=== PATIENT | male | born 1940 | race Caucasian/White ===

== ENCOUNTER 2017-09-23 12:16 | Emergency (ER) | payer OTHER ==
[~2017-09-23] VITALS: Ht 170.2 cm; Wt 79.5 kg
[2017-09-23 15:04] VITALS: BP 133/91
[2017-09-23] MEDS ORDERED: PERCOCET 5/31 TABLET PO (15:14)
[2017-09-23] MEDS ORDERED: KEFLEX500 MG PO (15:14)
== END 2017-09-23 15:40 | disposition home or self-care (01) ==
LOC: EME 12:16
DX: S62.633B Displaced fracture of distal phalanx of left middle finger, initial encounter for open fracture (principal); W28.XXXA Contact with powered lawn mower, initial encounter; Z23 Encounter for immunization; Z96.649 Presence of unspecified artificial hip joint
CPT/HCPCS: 73140; 99281; 99285; S0020